=== PATIENT | female | born 1970 | race African-American/Black ===

== ENCOUNTER 2021-12-10 16:14 | Emergency (ER) | payer OTHER ==
[~2021-12-10] VITALS: Ht 167.6 cm; Wt 86.3 kg
[2021-12-10] MEDS ORDERED: IBUPROFEN 400MG TABLET PO ONE (17:30)
[2021-12-10 18:28] LABS: BASOPHILS % 0.4 % (0.0-2.0); EOSINOPHILS % 0.9 % (0.0-5.0); HEMATOCRIT. 38.3 % (36.0-48.0); HEMOGLOBIN. 13.2 g/dL (12.0-16.0); LYMPHOCYTES % 45.3 % (20.0-50.0); MEAN CORPUSCULAR HEMOGLOBIN 29.1 pg (28.0-32.0); MONOCYTES % 7.9 % (2.0-8.0); NEUTROPHILS % 45.5 % (40.0-76.0); PLATELET 335 x1000/uL (130-400); RED BLOOD CELL COUNT 4.56 mill/uL (4.2-5.4); RED CELL DISTRIBUTION WIDTH 14.5 % (11.6-14.6)
[2021-12-10 18:33] LABS: CHLORIDE 106 mEq/L (98-107)
[2021-12-10] MEDS ORDERED: IBUP-2028 MT (19:31)
[2021-12-10] MEDS ORDERED: BENZ-16 MT (19:31)
[2021-12-10 19:51] VITALS: BP 119/70
== END 2021-12-10 19:52 | disposition home or self-care (01) ==
LOC: ER 16:14
DX: U07.1 COVID-19 (principal); M79.18 Myalgia, other site; R05.9 Cough, unspecified; Z85.41 Personal history of malignant neoplasm of cervix uteri
CPT/HCPCS: 36415; 71045; 80053; 85025; 99284

== ENCOUNTER 2022-01-31 01:12 | Emergency (ER) | payer MEDICAID, OTHER ==
[~2022-01-31] VITALS: Ht 177.8 cm; Wt 86.0 kg
[~2022-01-31 01:12] MED LIST: BENZ-16 MT; IBUP-2028 MT
[2022-01-31 01:39] VITALS: BP 137/90
[2022-01-31] MEDS ORDERED: IBUPROFEN 600MG TABLET PO ONE (02:00)
[2022-01-31] MEDS ORDERED: SULFAMETHOXAZOLE/TRIMETHOPRIM 800/160MG TABLET PO ONE (02:00)
== END 2022-01-31 02:05 | disposition left against medical advice (07) ==
LOC: ER 01:12
DX: N61.1 Abscess of the breast and nipple (principal); I10 Essential (primary) hypertension; Z85.3 Personal history of malignant neoplasm of breast; Z98.890 Other specified postprocedural states
CPT/HCPCS: 99281

== ENCOUNTER 2023-04-22 08:59 | Emergency (ER) | payer MEDICAID, OTHER ==
[~2023-04-22] VITALS: Ht 170.2 cm; Wt 65.6 kg
[2023-04-22 09:06] VITALS: BP 118/86
[2023-04-22] MEDS ORDERED: CEPH500C2 MT (09:40)
== END 2023-04-22 10:06 | disposition home or self-care (01) ==
LOC: ER 09:15
DX: N63.0 Unspecified lump in unspecified breast (principal); I10 Essential (primary) hypertension
CPT/HCPCS: 99281; 99283

== ENCOUNTER 2023-05-04 15:05 | Emergency (ER) | payer OTHER ==
[~2023-05-04] VITALS: Ht 167.6 cm; Wt 64.0 kg
[~2023-05-04 15:05] MED LIST changes: +CEPH500C2 MT
[2023-05-04 15:07] VITALS: BP 116/90; PULSE 86; RESP 16; TEMP 97.4; O2SAT 98
== END 2023-05-04 18:52 | disposition home or self-care (01) ==
LOC: ER 15:05
DX: R05.9 Cough, unspecified (principal); R53.1 Weakness; I10 Essential (primary) hypertension
CPT/HCPCS: 99283